=== PATIENT | male | born 1940 | race Caucasian/White ===

== ENCOUNTER → 2024-09-06 12:48 | Outpatient (REF) | payer MEDICARE, OTHER, SELFPAY | LOC: RCS 12:48 | PROVIDERS: ATTENDING PHYSICIAN Nurse Practitioner; FAMILY PHYSICIAN Internal Medicine | DX: R00.1 Bradycardia, unspecified (principal); R55 Syncope and collapse; I45.10 Unspecified right bundle-branch block; I10 Essential (primary) hypertension | CPT/HCPCS: 93225; 93226 ==

== ENCOUNTER → 2024-09-15 13:34 | Outpatient (REF) | payer MEDICARE, OTHER, SELFPAY | LOC: HWRCS 13:34 | PROVIDERS: ATTENDING PHYSICIAN Nurse Practitioner; FAMILY PHYSICIAN Internal Medicine | DX: R00.1 Bradycardia, unspecified (principal); R55 Syncope and collapse; I45.10 Unspecified right bundle-branch block; I10 Essential (primary) hypertension | CPT/HCPCS: 93306 ==